=== PATIENT | female | born 1950 | race Caucasian/White ===

== ENCOUNTER 2016-12-25 07:01 | Day surgery (SDC) | payer OTHER ==
[~2016-12-25 07:01] MED LIST: Buffered Lidocaine 1% SYR 3ML* 3 ML/SYR SYRINGE INTRADERM ONE
[2016-12-25] MEDS ORDERED: ceFAZolin 2 GM PREMIX (*) 2 GM/50 ML BAG IVPB ONE (07:13)
[2016-12-25] MEDS ORDERED: Lidocaine 1% INJ* 10 MG/ML 30 ML SDV ONE (07:19)
[2016-12-25] MEDS ORDERED: Midazolam* 1 MG/ML 2 ML VIAL (2 MG) ONE ×2 (08:25→08:44)
[2016-12-25] MEDS ORDERED: fentaNYL* 50 MCG/ML 2 ML VIAL (100 MCG VIAL) ONE (08:25)
[2016-12-25] MEDS ORDERED: KETAMINE HCL* 50 MG/ML 10 ML VIAL ONE (08:46)
[2016-12-25] MEDS ORDERED: Lidocaine 2% PF * 5 ML VIAL ONE (09:01)
[2016-12-25] MEDS ORDERED: Propofol* 10 MG/ML 20 ML BTL IV PUSH ONE (09:01)
[2016-12-25] MEDS ORDERED: Famotidine IV* 10 MG/ML 2 ML (20 mg) ONE (09:01)
[2016-12-25] MEDS ORDERED: Dexamethasone IV* 4 MG/ML 1 ML (4 MG) ONE (09:01)
[2016-12-25] MEDS ORDERED: Ondansetron INJ* 2 MG/ML VIAL IV PRN (09:05)
[2016-12-25] MEDS ORDERED: fentaNYL* 50 MCG/ML 2 ML VIAL (100 MCG VIAL) IV PRN (09:05)
[2016-12-25] MEDS ORDERED: PROCHLORPERAZINE INJ 5 MG/ML 2 ML VIAL IV PRN (09:05)
[2016-12-25] MEDS ORDERED: Acetaminophen TAB* 325 MG ONE (09:48)
[2016-12-25] MEDS ORDERED: Acetaminophen TAB* 325 MG PO SCH (10:00)
[2016-12-25 10:10] VITALS: BP 116/72
--- NOTE | 2016-12-25 10:14 | RAD ---
Indication: RIGHT side PowerPort placement. Endometrium cancer. Previous history of breast cancer. Comparison: April 06, 2014 Technique: Upright AP 0935 hours Report: Tip of the RIGHT chest port is at the level of the superior vena cava RIGHT atrial junction. Negative for pneumothorax. Clear lungs and pleural spaces. The heart, pulmonary vasculature, and mediastinal contours are unremarkable. IMPRESSION: Negative for pneumothorax post RIGHT chest port placement.
--- NOTE | 2016-12-25 10:15 | RAD ---
INDICATION: Endometrium carcinoma. RIGHT side PowerPort placement. COMPARISON: None. TECHNIQUE: 10 seconds fluoroscopy. FINDINGS: Spot image documents a RIGHT side chest port. The tip of the catheter is not well visualized beyond the RIGHT brachiocephalic vein. IMPRESSION: Procedural fluoroscopy. CPT II Codes: 6045F
--- NOTE | 2016-12-25 22:24 | OP ---
DATE OF OPERATION: 12/25/16 [facility] DATE OF : 54 SURGEON: Juan A Wall MD HEAD SHIPPER: None. ANESTHESIOLOGIST: Dr. Mcgowan. ANESTHESIA: LMAC anesthesia. PRE-OP DIAGNOSIS: Endometrial carcinoma. POST-OP DIAGNOSIS: Endometrial carcinoma. OPERATIVE PROCEDURE: Placement of right subclavian 8-Turkmen PowerPort. DESCRIPTION OF PROCEDURE: The patient was supine on the operative table. After adequate compression stockings, Kelly Hugger warmer, intravenous antibiotics, the right chest and neck region were prepped with antiseptic, draped in a sterile fashion. Local infiltrative anesthesia was administered. Approximately 3 cm incision was created at the site of previous port. Inferior pocket was created. Subclavian venipuncture was carried out. A guidewire was passed under fluoroscopic guidance. Catheter was passed through the peel-away introducer, measured, and cut at 23 cm, and attached to the port, which was sutured into the pocket with 2-0 Prolene. The pocket was closed with 3-0 and 5- 0 Polysorb, followed by Steri-Strips. The port has good blood return. It was flushed with saline solution and heparinized solution. She tolerated the procedure well. She was brought to Recovery in good condition. No complications. No drains. No pathologic specimens. Sponge and instrument counts correct. Estimated blood loss less than 10 mL. CC: Juan A Wall MD; Antwon Malave MD; Harika Miramontes MD* [id number]/[facility] #: [id number] MTDD
== END 2016-12-25 10:10 | disposition home or self-care (01) ==
LOC: OR 07:01
PROVIDERS: ATTEND Surgery
DX: C54.1 Malignant neoplasm of endometrium (principal); Z85.3 Personal history of malignant neoplasm of breast; I10 Essential (primary) hypertension; Z87.891 Personal history of nicotine dependence
CPT/HCPCS: 71010; 76000; A9270-GY; J0690; J1100; J1642; J2250; J2704; J3010

== ENCOUNTER 2023-04-09 09:18 | Inpatient (IN) ==
[2023-04-09] MEDS ORDERED: Enoxaparin 40 MG/0.4 ML SYR SUBCUT SCH (23:45)
[2023-04-10 05:50] LABS: Hemoglobin 7.7 g/dL (11.5-14.3); Mean Corpuscular Hemoglobin 30.8 pg (27-33); Mean Corpuscular Hgb Conc 33.6 g/dL (31-36); Mean Corpuscular Volume 91.8 fL (80-97); Mean Platelet Volume 8.4 fL (7.5-11.2); Platelet Count 422 10^3/uL (150-450); Red Cell Distribution Width 15.8 % (12-17); White Blood Count 10.7 10^3/uL (3.8-11.8)
[2023-04-10 06:17] LABS: Albumin 2.3 g/dL (3.2-5.2); Albumin/Globulin Ratio 0.7 (1-3); Calcium 8.2 mg/dL (8.6-10.3); Creatinine, Serum 0.86 mg/dL (0.51-0.95); Globulin 3.1 g/dL (2-4); Potassium 4.3 mmol/L (3.5-5.0); Total Bilirubin 0.3 mg/dL (0.2-1.0); Total Protein 5.4 g/dL (6.4-8.9); eGFR CKD-EPI 72.6 (>60)
[2023-04-10] MEDS: Ondansetron ODT 4 mg TAB 4 MG TAB SL PRN (06:57)
[2023-04-10 08:41] LABS: Polychromasia 1+
[2023-04-10 08:42] LABS: ABS Basophils 0.1 10^3/uL (0.0-0.1); ABS Eosinophils 0.2 10^3/uL (0.0-0.5); ABS Lymphocytes 0.9 10^3/uL (1.0-4.8); ABS Monocytes 0.9 10^3/uL (0.0-0.9); ABS Neutrophils 8.6 10^3/uL (1.5-7.6); Eosinophil % 1.6 %; Lymphocyte % 8.3 %
[2023-04-10] MEDS: Diphenoxylat/Atrop 2.5-0.025mg TAB PO SCH ×4 (08:43→21:40)
[2023-04-10] MEDS: Psyllium PAK PO SCH ×2 (08:44→21:41)
[2023-04-10] MEDS: Enoxaparin 40 MG/0.4 ML SYR SUBCUT SCH (08:44)
[2023-04-11 07:38] LABS: Hemoglobin 8.1 g/dL (11.5-14.3); Mean Corpuscular Hemoglobin 30.5 pg (27-33); Mean Corpuscular Hgb Conc 33.5 g/dL (31-36); Mean Platelet Volume 7.8 fL (7.5-11.2); Platelet Count 484 10^3/uL (150-450); Red Blood Count 2.64 10^6/uL (3.63-4.92); Red Cell Distribution Width 15.9 % (12-17); White Blood Count 9.8 10^3/uL (3.8-11.8)
[2023-04-11] MEDS: Diphenoxylat/Atrop 2.5-0.025mg TAB PO SCH ×4 (08:14→20:16)
[2023-04-11] MEDS: Psyllium PAK PO SCH ×2 (08:16→20:30)
[2023-04-11] MEDS: Enoxaparin 40 MG/0.4 ML SYR SUBCUT SCH (08:16)
[2023-04-11 08:20] LABS: Calcium 8.2 mg/dL (8.6-10.3); Creatinine, Serum 0.73 mg/dL (0.51-0.95); Potassium 4.2 mmol/L (3.5-5.0); eGFR CKD-EPI 88.4 (>60)
[2023-04-12 07:04] LABS: Mean Corpuscular Hemoglobin 29.9 pg (27-33); Mean Corpuscular Hgb Conc 33.3 g/dL (31-36); Mean Corpuscular Volume 89.9 fL (80-97); Mean Platelet Volume 7.6 fL (7.5-11.2); Platelet Count 558 10^3/uL (150-450); Red Blood Count 2.67 10^6/uL (3.63-4.92); Red Cell Distribution Width 15.9 % (12-17); White Blood Count 9.5 10^3/uL (3.8-11.8)
[2023-04-12 08:12] LABS: ABS Basophils 0.1 10^3/uL (0.0-0.1); ABS Eosinophils 0.2 10^3/uL (0.0-0.5); ABS Lymphocytes 0.8 10^3/uL (1.0-4.8); ABS Monocytes 0.9 10^3/uL (0.0-0.9); ABS Neutrophils 7.5 10^3/uL (1.5-7.6); ABS Nucleated RBC 0.01 10^3/ul; Eosinophil % 2.3 %; Lymphocyte % 7.9 %; Nucleated Red Blood Cells % 0.1 /100 WBC (0.0-0.4)
[2023-04-12] MEDS: Diphenoxylat/Atrop 2.5-0.025mg TAB PO SCH ×4 (09:05→21:14)
[2023-04-12] MEDS: Enoxaparin 40 MG/0.4 ML SYR SUBCUT SCH (09:05)
[2023-04-12] MEDS: Psyllium PAK PO SCH ×2 (09:05→21:15)
[2023-04-12] MEDS: Ondansetron ODT 4 mg TAB 4 MG TAB SL PRN (10:18)
[2023-04-13] MEDS: Diphenoxylat/Atrop 2.5-0.025mg TAB PO SCH ×4 (08:57→22:02)
[2023-04-13] MEDS: Psyllium PAK PO SCH ×2 (08:59→22:02)
[2023-04-13] MEDS: Enoxaparin 40 MG/0.4 ML SYR SUBCUT SCH (08:59)
[2023-04-14 08:06] LABS: Hematocrit 23.6 % (35-45); Hemoglobin 7.9 g/dL (11.5-14.3); Mean Corpuscular Hemoglobin 30.3 pg (27-33); Mean Corpuscular Hgb Conc 33.4 g/dL (31-36); Mean Corpuscular Volume 90.8 fL (80-97); Mean Platelet Volume 7.5 fL (7.5-11.2); Platelet Count 604 10^3/uL (150-450); Red Cell Distribution Width 15.6 % (12-17); White Blood Count 10.6 10^3/uL (3.8-11.8)
[2023-04-14] MEDS: Diphenoxylat/Atrop 2.5-0.025mg TAB PO SCH ×4 (08:25→20:22)
[2023-04-14] MEDS: Enoxaparin 40 MG/0.4 ML SYR SUBCUT SCH (08:26)
[2023-04-14] MEDS: Psyllium PAK PO SCH ×2 (08:29→20:45)
[2023-04-14 08:49] LABS: Anion Gap 5 mmol/L (2-16); Blood Urea Nitrogen 11 mg/dL (6-24); CO2 Carbon Dioxide 33 mmol/L (22-32); Calcium 8.3 mg/dL (8.6-10.3); Chloride 105 mmol/L (101-111); Creatinine, Serum 0.81 mg/dL (0.51-0.95); Glucose 93 mg/dL (70-100); Potassium 4.4 mmol/L (3.5-5.0); Sodium 143 mmol/L (135-145)
[2023-04-14 09:55] LABS: Anisocytosis 2+; Polychromasia 2+
[2023-04-14 09:56] LABS: ABS Basophils 0.1 10^3/uL (0.0-0.1); ABS Eosinophils 0.2 10^3/uL (0.0-0.5); ABS Lymphocytes 0.9 10^3/uL (1.0-4.8); ABS Monocytes 0.9 10^3/uL (0.0-0.9); ABS Neutrophils 8.4 10^3/uL (1.5-7.6); Eosinophil % 2.3 %; Lymphocyte % 8.4 %
[2023-04-14 11:14] LABS: % Iron Saturation 13 % (15-55); .Transferrin 111 mg/dL (203-362); Iron < 20 ug/dL (50-212); Total Iron Binding Capacity 155 mcg/dL (250-450); Unsaturated Iron Binding 135 ug/dL
[2023-04-14 11:36] LABS: Ferritin 708.7 ng/mL (11-307)
[2023-04-14 11:40] LABS: Folate 7.61 ng/mL (5.90-24.80)
[2023-04-14 11:41] LABS: Vitamin B12 715 pg/mL (180-914)
[2023-04-15 06:17] LABS: Hematocrit 25.5 % (35-45); Hemoglobin 8.7 g/dL (11.5-14.3); Mean Corpuscular Hemoglobin 29.6 pg (27-33); Mean Corpuscular Hgb Conc 34.1 g/dL (31-36); Mean Platelet Volume 7.6 fL (7.5-11.2); Platelet Count 603 10^3/uL (150-450); Red Blood Count 2.93 10^6/uL (3.63-4.92); Red Cell Distribution Width 17.8 % (12-17); White Blood Count 9.3 10^3/uL (3.8-11.8)
[2023-04-15 06:21] LABS: ABS Basophils 0.1 10^3/uL (0.0-0.1); ABS Eosinophils 0.3 10^3/uL (0.0-0.5); ABS Lymphocytes 0.9 10^3/uL (1.0-4.8); ABS Monocytes 0.7 10^3/uL (0.0-0.9); ABS Neutrophils 7.2 10^3/uL (1.5-7.6); ABS Nucleated RBC 0.01 10^3/ul; Eosinophil % 3.4 %; Nucleated Red Blood Cells % 0.1 /100 WBC (0.0-0.4)
[2023-04-15 06:38] LABS: Calcium 8.2 mg/dL (8.6-10.3); Creatinine, Serum 0.79 mg/dL (0.51-0.95); Potassium 4.1 mmol/L (3.5-5.0); eGFR CKD-EPI 80.4 (>60)
[2023-04-15] MEDS: Diphenoxylat/Atrop 2.5-0.025mg TAB PO SCH ×4 (10:07→21:11)
[2023-04-15] MEDS: Psyllium PAK PO SCH ×2 (10:08→21:22)
[2023-04-15] MEDS: Enoxaparin 40 MG/0.4 ML SYR SUBCUT SCH (10:09)
[2023-04-16 07:54] LABS: Hemoglobin 8.7 g/dL (11.5-14.3); Mean Corpuscular Hgb Conc 33.3 g/dL (31-36); Mean Corpuscular Volume 87.2 fL (80-97); Platelet Count 603 10^3/uL (150-450); Red Blood Count 2.99 10^6/uL (3.63-4.92)
[2023-04-16] MEDS: Diphenoxylat/Atrop 2.5-0.025mg TAB PO SCH ×4 (08:08→21:31)
[2023-04-16] MEDS: Enoxaparin 40 MG/0.4 ML SYR SUBCUT SCH (08:10)
[2023-04-16] MEDS: Psyllium PAK PO SCH ×2 (08:10→21:34)
[2023-04-16 09:14] LABS: ABS Eosinophils 0.4 10^3/uL (0.0-0.5); ABS Monocytes 0.7 10^3/uL (0.0-0.9); ABS Neutrophils 7.8 10^3/uL (1.5-7.6); Eosinophil % 4.4 %; Lymphocyte % 9.6 %; RBC Morphology Normal (Normal)
[2023-04-17] MEDS: Enoxaparin 40 MG/0.4 ML SYR SUBCUT SCH (07:14)
[2023-04-17] MEDS: Diphenoxylat/Atrop 2.5-0.025mg TAB PO SCH ×4 (07:14→20:06)
[2023-04-17] MEDS: Psyllium PAK PO SCH ×2 (07:15→20:07)
[2023-04-18 06:34] LABS: Hematocrit 25.9 % (35-45); Hemoglobin 8.5 g/dL (11.5-14.3); Mean Corpuscular Hemoglobin 28.7 pg (27-33); Mean Corpuscular Hgb Conc 32.6 g/dL (31-36); Mean Corpuscular Volume 88.1 fL (80-97); Mean Platelet Volume 7.3 fL (7.5-11.2); Platelet Count 554 10^3/uL (150-450); Red Blood Count 2.94 10^6/uL (3.63-4.92); Red Cell Distribution Width 16.4 % (12-17); White Blood Count 11.2 10^3/uL (3.8-11.8)
[2023-04-18 06:47] LABS: Calcium 8.5 mg/dL (8.6-10.3); Creatinine, Serum 0.88 mg/dL (0.51-0.95); Potassium 3.3 mmol/L (3.5-5.0); eGFR CKD-EPI 70.7 (>60)
[2023-04-18] MEDS: Psyllium PAK PO SCH ×2 (07:13→20:09)
[2023-04-18 07:17] LABS: Polychromasia 1+
[2023-04-18 07:18] LABS: ABS Basophils 0.1 10^3/uL (0.0-0.1); ABS Eosinophils 0.4 10^3/uL (0.0-0.5); ABS Monocytes 0.9 10^3/uL (0.0-0.9); ABS Neutrophils 8.9 10^3/uL (1.5-7.6); ABS Nucleated RBC 0.01 10^3/ul; Anisocytosis 1+; Eosinophil % 3.4 %; Lymphocyte % 8.6 %; Nucleated Red Blood Cells % 0.1 /100 WBC (0.0-0.4)
[2023-04-18] MEDS: Diphenoxylat/Atrop 2.5-0.025mg TAB PO SCH ×4 (08:09→20:09)
[2023-04-18] MEDS: Enoxaparin 40 MG/0.4 ML SYR SUBCUT SCH (08:10)
[2023-04-18] MEDS ORDERED: Potassium Chloride LIQUID 20 MEQ/15 ML LIQUID PO ONE (09:00)
[2023-04-18] MEDS: KCL 20 MEQ/100 ML IVPREMIX 20 MEQ/100 ML BAG IV SCH ×2 (11:44→16:40)
[2023-04-19] MEDS: Psyllium PAK PO SCH ×2 (07:24→19:11)
[2023-04-19] MEDS: Diphenoxylat/Atrop 2.5-0.025mg TAB PO SCH ×4 (07:59→19:32)
[2023-04-19] MEDS: Enoxaparin 40 MG/0.4 ML SYR SUBCUT SCH (07:59)
[2023-04-20] MEDS: Diphenoxylat/Atrop 2.5-0.025mg TAB PO SCH ×2 (07:45→11:24)
[2023-04-20] MEDS: Enoxaparin 40 MG/0.4 ML SYR SUBCUT SCH (07:46)
[2023-04-20] MEDS: Psyllium PAK PO SCH (07:47)
[2023-04-20 09:46] LABS: Rapid COVID-19 Molecular Undetected (Undetected)
[2023-04-20 10:31] VITALS: BP 116/64
== END 2023-04-20 14:00 | disposition swing bed (61) | DRG 754 ==
LOC: SUATTDRO 21:52 → MED 21:52 → INTOOBSV 21:52 → SUATTDRO 04-12 16:51
PROVIDERS: ADMIT Hospitalist; ATTEND Internal Medicine

== ENCOUNTER 2024-09-22 11:08 | Inpatient (IN) ==
[2024-09-22 11:34] LABS: ABS Basophils 0.1 10^3/uL (0.0-0.1); ABS Eosinophils 0.1 10^3/uL (0.0-0.5); ABS Lymphocytes 1.5 10^3/uL (1.0-4.8); ABS Monocytes 0.9 10^3/uL (0.0-0.9); ABS Neutrophils 11.1 10^3/uL (1.5-7.6); Eosinophil % 0.5 %; Hematocrit 48.7 % (35-45); Hemoglobin 15.7 g/dL (11.5-14.3); Lymphocyte % 11.2 %; Mean Corpuscular Hemoglobin 30.1 pg (27-33); Mean Corpuscular Hgb Conc 32.2 g/dL (31-36); Mean Corpuscular Volume 93.4 fL (80-97); Mean Platelet Volume 8.7 fL (7.5-11.2); Platelet Count 312 10^3/uL (150-450); Red Blood Count 5.21 10^6/uL (3.63-4.92); Red Cell Distribution Width 13.9 % (12-17); White Blood Count 13.6 10^3/uL (3.8-11.8)
[2024-09-22 12:04] LABS: Albumin 4.6 g/dL (3.2-5.2); Albumin/Globulin Ratio 1.2 (1-3); Calcium 10.2 mg/dL (8.6-10.3); Creatinine, Serum 3.6 mg/dL (0.51-0.95); Potassium 3.3 mmol/L (3.5-5.0); Total Bilirubin 0.7 mg/dL (0.2-1.0); Total Protein 8.6 g/dL (6.4-8.9); eGFR CKD-EPI 12.9 (>60)
[2024-09-22 13:02] LABS: Magnesium 1.8 mg/dL (1.9-2.7)
[2024-09-22] MEDS ORDERED: Ondansetron 4 mg VIAL 2 MG/ML 2 ml VIAL IV PRN (13:40)
[2024-09-22] MEDS ORDERED: Morphine 2 MG/ML SYRINGE IV PRN (13:50)
[2024-09-22] MEDS ORDERED: Prochlorperazine 5 mg/ml 2 ml VIAL (10 mg) IV PRN (13:52)
[2024-09-22] MEDS ORDERED: HYDROmorphone 0.5 MG/0.5 ML SYRINGE IV SLOW PU PRN (16:34)
[2024-09-22] MEDS: Enoxaparin 30 MG/0.3 ML SYR SUBCUT SCH (18:18)
[2024-09-22] MEDS: cefTRIAXone 1 gm/50 mL D5W 1 GM/50 ML BAG IV SCH (18:25)
[2024-09-22] MEDS: LACTATED RINGERS 500 ML BAG IV ONE (18:55)
[2024-09-22] MEDS: Lactated Ringers 1000 ml BAG 500 ML IV ONE (18:58)
[2024-09-22] MEDS: KCL 10 MEQ/50 ML IVPREMIX 10 MEQ/50 ML BAG IV SCH (22:42)
[2024-09-22] MEDS: NS 0.9% 1000 ml BAG 1,000 ML IV SCH (22:42)
[2024-09-23] MEDS: Magnesium Sulfate 2 gm BAG 2 GM/50 ML BAG IVPB ONE (01:27)
[2024-09-23] MEDS: NS 0.9% 250 ml 250 ML IV ONE (02:46)
[2024-09-23 06:57] LABS: ABS Basophils 0.1 10^3/uL (0.0-0.1); ABS Eosinophils 0.1 10^3/uL (0.0-0.5); ABS Lymphocytes 1.3 10^3/uL (1.0-4.8); ABS Monocytes 0.5 10^3/uL (0.0-0.9); ABS Neutrophils 4.4 10^3/uL (1.5-7.6); Eosinophil % 1.6 %; Hematocrit 35.9 % (35-45); Hemoglobin 12.2 g/dL (11.5-14.3); Lymphocyte % 20.5 %; Mean Corpuscular Hemoglobin 31.9 pg (27-33); Mean Corpuscular Hgb Conc 33.9 g/dL (31-36); Mean Corpuscular Volume 93.9 fL (80-97); Mean Platelet Volume 8.8 fL (7.5-11.2); Nucleated Red Blood Cells % 0.1 %/100WBC (0.0-0.8); Platelet Count 204 10^3/uL (150-450); Red Blood Count 3.82 10^6/uL (3.63-4.92); Red Cell Distribution Width 12.8 % (12-17); White Blood Count 6.4 10^3/uL (3.8-11.8)
[2024-09-23 08:44] LABS: Urine Appearance Clear; Urine Bilirubin Negative (Negative); Urine Blood 1+ (Negative); Urine Color Light-Yellow; Urine Glucose Negative (Negative); Urine Ketones Negative (Negative); Urine Nitrite Negative (Negative); Urine Protein Trace (Negative); Urine Specific Gravity 1.013 (1.002-1.030); Urine Urobilinogen Negative (Negative)
[2024-09-23 08:50] LABS: Urine Bacteria 1+ /HPF (Absent); Urine Red Blood Cell 1+(3-5/hpf) /HPF (0-Trace); Urine Squamous Epithelial Cell Present /HPF (Absent); Urine White Blood Cell 1+(6-10/hpf) /HPF (0-Trace)
[2024-09-23 09:11] LABS: Albumin 3.7 g/dL (3.2-5.2); Albumin/Globulin Ratio 1.8 (1-3); Calcium 8.5 mg/dL (8.6-10.3); Creatinine, Serum 2.57 mg/dL (0.51-0.95); Globulin 2.1 g/dL (2-4); Potassium 3.3 mmol/L (3.5-5.0); Total Bilirubin 0.4 mg/dL (0.2-1.0); Total Protein 5.8 g/dL (6.4-8.9); eGFR CKD-EPI 19.4 (>60)
[2024-09-23] MEDS: Potassium Chloride LIQUID 20 MEQ/15 ML LIQUID PO ONE (14:22)
[2024-09-24 08:37] LABS: Calcium 8.4 mg/dL (8.6-10.3); Creatinine, Serum 1.24 mg/dL (0.51-0.95); Potassium 3.4 mmol/L (3.5-5.0); eGFR CKD-EPI 46.5 (>60)
[2024-09-24] MEDS: Potassium EFFERVES 25 meq TAB PO ONE (10:27)
[2024-09-24 13:30] VITALS: BP 142/81
[2024-09-24] MEDS: NS 0.9% 1000 ml BAG 1,000 ML IV SCH (15:20)
== END 2024-09-24 16:30 | disposition home or self-care (01) | DRG 389 ==
LOC: CHOA 11:08 → SUATTDRO 15:44 → MED 15:44
PROVIDERS: ADMIT Internal Medicine Medical Oncology; ATTEND Internal Medicine